=== PATIENT | male | born 1975 | race Two or more races ===

== ENCOUNTER → 2024-02-11 | Outpatient (CLI) | payer MEDICAID | END | disposition home or self-care (01) | LOC: XYW 13:43 | PROVIDERS: ATTEND Internal Medicine | DX: I51.89 Other ill-defined heart diseases (principal); R06.02 Shortness of breath | CPT/HCPCS: 93306 ==

== ENCOUNTER → 2024-06-10 | Outpatient (CLI) | payer MEDICAID ==
[2024-06-10 08:46] LABS: Basophils # (auto) 0 10 ^3/uL (0-0.2); Eosinophils # (auto) 0.2 10 ^3/uL (0-0.8); Eosinophils % (auto) 4.2 % (0.0-7.0); Hematocrit 43.4 % (41.0-53.0); Lymphocytes # (auto) 1.4 10 ^3/uL (0.4-5.4); Lymphocytes % (auto) 32.2 % (10.0-50.0); Mean Corpuscular Hemoglobin 30.9 pg (28.0-32.0); Mean Corpuscular Hgb Conc. 34.6 g/dL (32.0-36.0); Mean Corpuscular Volume 89.5 fL (80.0-100.0); Monocytes # (auto) 0.3 10 ^3/uL (0-1.3); Monocytes % (auto) 6.2 % (0.0-12.0); Neutrophils # (auto) 2.4 10 ^3/uL (1.6-8.6); Neutrophils % (auto) 56.4 % (37.0-80.0); Nucleated Red Blood Cells % 0.1 %; Platelet Count (auto) 281 10^3/uL (140-450); Red Blood Cells 4.85 10^6/uL (4.5-5.90); Red Cell Distribution Width 14.1 % (11.8-14.3); White Blood Cell 4.3 10^3/uL (4.4-10.8)
[2024-06-10 08:58] LABS: Albumin 4.6 g/dL (3.2-4.8)
[2024-06-10 08:59] LABS: Bilirubin, Direct 0.1 mg/dL (<0.3); Bilirubin, Total 0.5 mg/dL (0.2-1.0); Total Protein 7.7 g/dL (5.7-8.2)
[2024-06-10 10:41] LABS: % Iron Saturation 16.5 % (20-55)
[2024-06-11 08:07] LABS: Complement C3 158 mg/dL (82-167); Rheumatoid Arthritis Factor <10.0 IU/mL (<14.0); Thyroid Peroxidase (TPO) Ab 11 IU/mL (0-34)
[2024-06-11 10:08] LABS: Anti-Nuclear Antibody Direct Negative (Negative); Anti-dsDNA Antibody <1 IU/mL (0-9); Antiscleroderma-70 Antibody <0.2 AI (0.0-0.9); RNP Antibody <0.2 AI (0.0-0.9); Sjogren's Anti-SS-A Antibody <0.2 AI (0.0-0.9); Sjogren's Anti-SS-B Antibody <0.2 AI (0.0-0.9); Smith Antibody <0.2 AI (0.0-0.9)
[2024-06-13 09:06] LABS: Antiparietal Cell Antibody 0.3 Units (0.0-20.0)
[2024-06-13 10:10] LABS: Hepatitis B Surface Antigen Negative (Negative)
[2024-06-13 10:31] LABS: Hepatitis A Ab IgM Negative
[2024-06-13 10:32] LABS: Hepatitis B Core IgM Negative; Hepatitis C Antibody Negative (Negative)
[2024-06-13 13:06] LABS: Anti-Striated Muscle Antibody Negative (Neg:<1:100)
[2024-06-13 14:06] LABS: Actin (Smooth Muscle) Antibody 2 Units (0-19); Mitochondrial (M2) Antibody <20.0 Units (0.0-20.0)
== END | disposition home or self-care (01) ==
LOC: LAB 07:58
PROVIDERS: ATTEND Internal Medicine
DX: J98.4 Other disorders of lung (principal); E78.5 Hyperlipidemia, unspecified; R79.89 Other specified abnormal findings of blood chemistry
CPT/HCPCS: 36415; 80074; 80076; 82728; 83540; 83550; 85025; 86160; 86225; 86235; 86376; 86431

== ENCOUNTER → 2024-06-30 | Outpatient (CLI) | payer MEDICAID | END | disposition home or self-care (01) | LOC: Rad HDHVI 15:08 | PROVIDERS: ATTEND Internal Medicine Cardiovascular Disease | DX: I10 Essential (primary) hypertension (principal); E78.5 Hyperlipidemia, unspecified | CPT/HCPCS: 93306 ==

== ENCOUNTER → 2024-07-20 | Outpatient (CLI) | payer MEDICAID ==
[~2024-07-20] VITALS: Ht 167.6 cm; Wt 119.7 kg
== END | disposition home or self-care (01) ==
LOC: Rad HDHVI 13:52
PROVIDERS: ATTEND Internal Medicine Cardiovascular Disease
DX: I11.0 Hypertensive heart disease with heart failure (principal); I50.33 Acute on chronic diastolic (congestive) heart failure; R07.89 Other chest pain; R06.02 Shortness of breath; J45.909 Unspecified asthma, uncomplicated; E78.5 Hyperlipidemia, unspecified
CPT/HCPCS: 78452; 93017; 96374; A9500

== ENCOUNTER 2024-08-04 07:16 | Emergency (ER) | payer MEDICAID ==
[~2024-08-04] VITALS: Ht 167.6 cm; Wt 125.2 kg
[2024-08-04 07:37] VITALS: BP 155/80; PULSE 74; RESP 18; TEMP 98.6; O2SAT 97
--- NOTE | 2024-08-04 07:46 | ED.PDOC ---
Musculoskeletal HPI Comments A 48 YEAR OLD MALE PRESENTS TO THE ED WITH COMPLAINT OF LEG PAIN. PATIENT REPORTS THAT HE HAS BEEN EXPERIENCING RIGHT SIDED KNEE PAIN THAT RADIATES FROM HIS RIGHT BUTTOCK DOWN BEHIND HIS RIGHT KNEE FOR THE PAST 3 DAYS. PATIENT RELAYS THAT HE DOES A LOT OF PHYSICAL ACTIVITY AND WORK THROUGHOUT THE DAY. WALKING AND PHYSICAL ACTIVITY INCREASES RIGHT KNEE PAIN. PATIENT DENIES NUMBNESS, WEAKNESS, FALL, OR OTHER COMPLAINTS. NO OTHER SYMPTOMS OR MODIFYING FACTORS AT THIS TIME. Chief Complaint: Lower Extremity Time Seen by MD: 07:44 Reviewed Notes: Nurses Notes, Medications, Allergies Allergies: Coded Allergies: NO KNOWN ALLERGIES (Unverified , 07/06/24) Information Source: Patient Mode of Arrival: Ambulatory Location: Right Extremity Location: Knee Timing: Days Prehospital treatment: None Severity: Moderate Able to Move Extremity: Yes Bear Weight: Fully Pain: Moderate Mechanism: Spontaneous Circumstances: Spontaneous Onset of Symptoms: After Exercise Symptoms: Pain DVT Risk Factors: NONE Last Tetanus: Unknown Associated signs and symptoms: Knee pain Past Medical History PAST MEDICAL HISTORY: Asthma Surgical History: Denies all surgeries Family History Family History: Reviewed,noncontributory to illness, Unknown Social History Smoker: Non-Smoker Alcohol: Denies ETOH Use Drugs: Denies Drug Use Lives In: Home Constitutional: denies: chills, diaphoresis, fatigue, fever, malaise, sweats, weakness, others EENTM: denies: blurred vision, double vision, ear bleeding, ear discharge, ear drainage, ear pain, ear ringing, eye pain, eye redness, hearing loss, mouth pain, mouth swelling, nasal discharge, nose bleeding, nose congestion, nose pain, photophobia, tearing, throat pain, throat swelling, voice changes, others Respiratory: denies: cough, hemoptysis, orthopnea, SOB at rest, shortness of breath, SOB with excertion, stridor, wheezing, others Cardiovascular: denies: chest pain, dizzy spells, diaphoresis, Dyspnea on exertion, edema, irregular heart beat, left arm pain, lightheadedness, palpitations, PND, syncope, others Gastrointestinal: denies: abdomen distended, abdominal pain, blood streaked bowels, constipated, diarrhea, dysphagia, difficulty swallowing, hematemesis, melena, nausea, poor appetite, poor fluid intake, rectal bleeding, rectal pain, vomiting, others Genitourinary: denies: burning, dysuria, flank pain, frequency, hematuria, i ncontinence, penile discharge, penile sore, pain, testicle pain, testicle swelling, urgency, others Neurological: denies: dizziness, fainting, headache, left sided numbness, left sided weakness, numbness, paresthesia, pre-existing deficit, right sided numbness, right sided weakness, seizure, speech problems, tingling, tremors, weakness, others Musculoskeletal: reports: joint pain, others (RT UPPER LEG PAIN); denies: back pain, gout, joint swelling, muscle pain, muscle stiffness, neck pain Integumetry: denies: bruises, change in color, change in hair/nails, dryness, laceration, lesions, lumps, rash, wounds, others Allergic/Immunocompromised: denies: Difficulty Healing, Frequent Infections, Hives, Itching, others Hematologic/Lymphatic: denies: anemia, blood clots, easy bleeding, easy bruising, swollen glands, others Endocrine: denies: excessive hunger, excessive sweating, excessive thirst, excessive urination, flushing, intolerance to cold, intolerance to heat, unex plained weight gain, unexplained weight loss, others Psychiatric: denies: anxiety, bipolar disorder, depression, hopeless, panic disorder, schizophrenia, sleepless, suicidal, others All Other Systems: Reviewed and Negative Physical Exam General Appearance: No Apparent Distress, Obese HEENT: Normal ENT Inspection, PERRL/EOMI, Pharynx Normal Neck: Full Range of Motion, Non-Tender, Normal, Normal Inspection Respiratory: Chest Non-Tender, Lungs Clear, No Accessory Muscle Use, No Respiratory Distress, Normal Breath Sounds Cardiovascular: No Edema, No JVD, No Murmur, No Gallop, Normal Peripheral Pulse s, Regular Rate/Rhythm Breast Exam: Deferred Gastrointestinal: No Organomegaly, Non Tender, No Pulsatile Mass, Normal Bowel Sounds, Soft Genitalia: Deferred Pelvic: Deferred, Normal External Exam Rectal: Deferred Extremities: Decreased range of motion (SLIGHTLY. ), No calf tenderness, Normal capillary refill, Normal inspection, No pedal edema, Tender (RIGHT POSTERIOR KNEE, NO BONY TENDERNESS, SWELLING AND DEFORMITY, NO REDNESS AND SWELLING ON RIGHT POSTERIOR THIGH AND LOWER LEG, NO DVT SIGNS. 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 Was a procedure done?: No Differential Diagnosis EXT Differential Diagnosis: Fracture, Sprain, DJD, Strain, Arthritis X-Ray, Labs, Meds, VS Vital Signs Date Time Temp Pulse Resp B/P (MAP) Pulse Ox O2 Delivery O2 Flow Rate FiO2 08/04/24 07:37 74 18 97 Room Air 08/04/24 07:37 98.6 74 18 155/80 (105) 97 98.6 08/04/24 07:21 98.6 74 18 155/80 (105) 97 Current Medications Medications (Trade) Dose Ordered Sig/Ishmael Route Start Time Stop Time Status Last Admin Acetaminophen (Tylenol Tablet) 1,000 mg ONCE ONCE PO 08/04/24 07:45 08/04/24 07:46 DC 08/04/24 07:52 RT KNEE XR: There is no evidence of fracture or dislocation. The alignment of the left knee is appropriate. Joint spaces are maintained. There is no significant joint effusion.The surrounding soft tissues appear unremarkable. X-Ray, Labs, Meds, VS Comment TYLENOL 1GM PO Images Reviewed?: Images reviewed and evaluated by me Time of 1ST Reevaluation: 08:23 Reevaluation 1ST: Improved Patient Education/Counseling: Diagnosis, Treatment, Prognosis, Need For Follow Up Family Education/Counseling: Diagnosis, Treatment, No Family Present Medical Screening: No EMC Exist At This Time Departure 1 Departure Time of Disposition: 08:30 Impression: Primary Impression: Posterior right knee pain Additional Impression: Sciatica of right side Disposition: 01 HOME / SELF CARE / HOMELESS Condition: Stable Additional Instructions: FOLLOW UP WITH PCP WITHIN 1-3 DAYS. RETURN TO THE ED IF SYMPTOMS PERSIST OR WORSEN. e-Prescriptions Baclofen (Baclofen) 10 Mg Tab 10 MG PO BID, #20 TAB Prov: JANNY ESPITIA 08/04/24 Ibuprofen (Ibuprofen) 800 Mg Tab 1 TAB PO TID, #30 TAB Prov: JANNY ESPITIA 08/04/24 Discharged With: Self Critical Care Note Critical Care Time?: No Stability Stability form required: No Heart Score Heart Score: Heart Score Response (Comments) Value History N/A 0 EKG N/A 0 Age N/A 0 Risk Factors N/A 0 Troponin N/A 0 Total 0 I personally scribed for JANNY ESPITIA ([email or web address]) on 08/04/24 at 07:46. Electronically submitted by Raghu Masters ([email or web address]). I personally scribed for JANNY ESPITIA ([email or web address]) on 08/04/24 at 07:56. Electronically submitted by Raghu Masters ([email or web address]). I personally scribed for JANNY ESPITIA ([email or web address]) on 08/04/24 at 08:13. Electronically submitted by Raghu Masters ([email or web address]). I personally scribed for JANNY ESPITIA ([email or web address]) on 08/04/24 at 08:16. Electronically submitted by Raghu Masters ([email or web address]). JANNY ESPITIA Aug 04, 2024 07:46
[2024-08-04] MEDS: ACETAMINOPHEN 500 MG TAB PO ONE (07:52)
--- NOTE | 2024-08-04 08:11 | DVH ---
LEFT KNEE RADIOGRAPHS CLINICAL HISTORY: pain, no injury TECHNIQUE: 3 views of the left knee. Comparison: None FINDINGS/IMPRESSION: There is no evidence of fracture or dislocation. The alignment of the left knee is appropriate. Joint spaces are maintained. There is no significant joint effusion.The surrounding soft tissues appear un remarkable. HS:Y
[2024-08-04] MEDS ORDERED: IBUP-1456 PO (08:21)
[2024-08-04] MEDS ORDERED: BACL10TA PO (08:21)
== END 2024-08-04 08:34 | disposition home or self-care (01) ==
LOC: ER 07:16
DX: M25.561 Pain in right knee (principal); M54.31 Sciatica, right side; J45.909 Unspecified asthma, uncomplicated
CPT/HCPCS: 73562